=== PATIENT | male | born 1960 | race Caucasian/White ===

== ENCOUNTER 2023-07-28 06:55 | Day surgery (SDC) | payer OTHER, SELFPAY ==
[2023-07-28] VITALS (17 sets, daily range): BP systolic 97–188; BP diastolic 66–109; BMI 22.5
[2023-07-28] MEDS: NSS 500 IV (07:04)
[2023-07-28 07:07] LABS: Hematocrit 41.8 % (39.0-52.0); Hemoglobin 13.7 g/dL (13.0-18.0); Mean Corp Hgb Conc. 32.8 g/dL (33.0-37.0); Mean Corpuscular Hgb 27.8 pg (27.0-31.0); Mean Platelet Volume 9.6 fL (7.4-10.4); Platelet Count 256 10^3/uL (130-400); Red Blood Cell Count 4.92 10^6/uL (4.70-6.10); White Blood Cell Count 9.6 10^3/uL (4.8-10.8)
--- NOTE | 2023-07-28 07:11 | W.SUR.PREOP ---
Pre-Operative Surgical Note
-
I have examined this patient prior to the performance of the scheduled procedure.
The patient's condition is unchanged from the time of the current History and
Physical and the patient is able to undergo the scheduled procedure.
[2023-07-28 07:14] LABS: Glucose - Point of Care 171 mg/dl (70-99)
[2023-07-28 07:17] LABS: APTT 30.5 Sec (23.4-35.0); INR 0.94; PT 12.6 Sec (11.4-14.6)
[2023-07-28 07:27] LABS: Blood Urea Nitrogen 56 mg/dl (9-20); Calcium 8.6 mg/dl (8.4-10.2); Carbon Dioxide 27 mmol/L (22-30); Chloride 107 mmol/L (98-107); Estimated Creatinine Clearance 16 ml/min; Glucose 168 mg/dl (70-99); Potassium 5.1 mmol/L (3.5-5.1); Sodium 139 mmol/L (135-145); eGFR 11.62
--- NOTE | 2023-07-28 09:30 | W.SUR.POST ---
Surgical Immediate Post Op
Note
Pre Op Diagnosis: PAD, ESRD
Post Op Diagnosis: PAD, ESRD
Procedure Performed: LLE angiogram, left SFA stents x 3, LUE fistulagram with balloon angioplasty
Primary Surgeon: Onel
Anesthesia: local and sedation
Estimated Blood Loss: 2cc
Fluids: see anethesia flow sheet
Drains/Shunts: none
Specimens/Cultures: none
Doppler/Duplex/Angio (Y/N): Y
Complications: none
Operative Findings: +thrill
[2023-07-28 09:38] LABS: Glucose - Point of Care 135 mg/dl (70-99)
--- NOTE | 2023-07-28 15:03 | W.PN.UPDATE ---
Update Note
Progress Note Update
Called to bedside by RN Saundra Segura, reporting patient demanding to be discharged 30 minutes prior to established discharge order. When I arrived to recovery bay patient was dressed and presently in wheel chair, puncture site soft with no evidence
of hematoma, reinforced bleeding risk and when to seek urgent medical care/call EMS patient verbalized understanding and continues to request discharge. Patient brought to car safely via wheel chair.
--- NOTE | 2023-07-29 13:37 | OR.RPT ---
Operative Report
Operative Report
PROCEDURE DATE: 07/28/2023
Preoperative diagnosis: Chronic limb threatening ischemia left lower extremity with tissue loss.
Postoperative diagnosis: Same
Procedure:
1. Duplex assisted right common femoral artery cannulation.
2. Aortogram and pelvic angiogram.
3. Left lower extremity arteriogram with third order vessel catheterization of the left below the knee popliteal artery via right common femoral artery puncture.
4. Balloon angioplasty and stent placement with Plei Zilver PTX stents left SFA x 3 (nonoverlapping) with 6 mm x 40 mm, 6 mm x 40 mm, 6 mm x 120 mm stents.
5. Right femoral angiogram.
6. Left upper extremity fistulogram.
7. Balloon angioplasty of left upper extremity AV fistula outflow vein stenosis with 4 mm angioplasty balloon.
6. Supervision and interpretation.
Surgeon: Onel
Marshmallow Runner: None
Complications: None
Anesthesia: Local, sedation
Fluoroscopy:
15.6 min
37 mGy
9.18 Gy.cm2
Indications for procedure:
Patient had combined problem of left lower extremity tissue loss (history of proximal foot amputation). In addition had none maturing or poorly maturing fistula. Was brought for left lower extremity arteriogram and fistulogram to be done under the
same anesthesia setting. Risk/benefits/alternatives were also discussed. Patient understood all wish to proceed.
Description of procedure:
Patient was identified, brought to the operating room. Placed on the table in the supine position. After the adequate administration of anesthesia, the patient was prepped and draped in the standard surgical fashion. A standard preoperative
timeout was undertaken and everybody was in agreement with the plan.
The right common femoral artery was accessed with a micropuncture kit under direct duplex ultrasound guidance. A 5 Swiss sheath was then advanced over a 0.035 inch wire, and a pedersen's hook catheter was advanced into the abdominal aorta.
Aortogram and pelvic angiogram was obtained. Findings as follows:
Infrarenal aorta: Small infrarenal aortic ectasia with atherosclerotic plaque but no significant stenosis in visualized portion of distal infrarenal aorta.
Right common iliac artery: Diffuse eccentric atherosclerotic plaque possible mild stenosis near bifurcation. Right internal iliac artery not well-visualized though. Appears chronically occluded.
Right external iliac artery: Patent with some luminal irregularities but no definitive stenosis.
Left common iliac artery: Patent with eccentric plaque. No significant stenosis.
Left external iliac artery: Patent with eccentric plaque, luminal irregularity but no significant stenosis. Distal external iliac artery stent patent with no significant stenosis.
Using a floppy angled hydrophilic wire, the left common femoral artery was cannulated and the catheter was advanced. Left lower extremity arteriogram was obtained. Findings as follows:
Common femoral artery: Relatively small in stature but no significant stenosis.
Profunda femoris artery: Mild to moderate proximal stenosis but not severe.
Superficial femoral artery: Patent proximally and then about 6 to 8 cm beyond the origin heavy bulky coral reef like plaque resulting in severe stenosis. Luminal irregularities throughout beyond here. Some areas of possible stenoses with slower
flow. Distal SFA with focal string-like stenosis again.
Popliteal artery: Patent with diffuse luminal irregularities.
Anterior tibial artery: Patent proximal and mid segment but relatively poor filling seen distally. Appears to occlude at ankle.
Tibial peroneal trunk: Patent with no definitive stenosis though small.
Peroneal artery: Patent proximally but very small stature. Not great filling seen distally beyond the ankle (no collateral seen to fill distally).
Posterior tibial artery: Patent with no definitive stenosis. Appears to be the dominant runoff vessel to the foot. But on the foot itself it occludes in the proximal foot.
At this point I selectively cannulated the superficial femoral artery and then exchanged for an up and over 6 Swiss sheath. I give the patient appropriate dose of heparin. I was able to traverse the proximal stenosis with a Storq wire and then
under roadmap assisted guidance traversed the distal stenosis with a flopping on hydrophilic wire and a CXI catheter. Angiogram confirmed I was in the true lumen and the popliteal artery. I then exchanged for a Storq wire again. I then primarily
stented the proximal and distal severe stenoses in the SFA with 6 mm Zilver PTX stents post angioplastied with a 5 mm balloons. Completion angiogram demonstrated excellent result at those 2 sites. However the middle segment of the SFA now appeared
to have areas of luminal irregularities that seem to hold off of the filling. I could not tell if there was some thrombus or chronic plaque/filling defects. In order to be safe I felt that it would be best to stent this. I used a 6 mm x 120 mm
Zilver PTX stent. This was post angioplastied with a 5 mm balloon as well. Completion angiogram demonstrated now excellent result. Good flow into the runoff.
At this point I performed a right femoral angiogram that demonstrated good puncture in the right common femoral artery. The SFA appeared occluded on the right side. (Chronically). I then exchanged for a short 6 Swiss sheath and remove my wires.
Next I turned my attention to the left upper extremity which was prepped and draped in the standard surgical fashion. I then under duplex assisted guidance cannulated the outflow cephalic vein in the proximal forearm and a peripheral facing
direction using a micropuncture kit. I then advanced a 4 Swiss sheath over a 0.035 inch wire. I then performed a fistulogram that demonstrated patent outflow vein at least to the level of the mid forearm and more proximally in the forearm. I
advanced a glide catheter to try to image closer to the anastomosis. However at this point we had dysfunction of our imaging capabilities. Our system was not working properly and I could not perform subtraction images anymore. Therefore I did
fluoroscopy standard runs nonsubtracted which made this very challenging. I was however finally able to gain wire access into the radial artery distal to the anastomosis (was unable to get wire access into the radial artery proximal to the
anastomosis. There did appear to be after imaging here a significant stenosis in the immediate outflow segment of the vein. I therefore then exchanged for a 0.018 inch wire and then performed balloon angioplasty of that segment with a 4 mm
balloon. Completion angiogram now demonstrated definite improvement with now complete patent flow channel. It was still somewhat stenotic but I was hesitant to take a 5 mm balloon up as the 4 mm balloon itself was causing some spasm in the radial
artery. In addition my imaging was very limited based on the issues we are having with her imaging machine. We did try troubleshooting but were unable to achieve resolution. Therefore at this point I felt the safest thing and best thing was to
stop. The wires and catheters were withdrawn. A 4-0 Monocryl pursestring stitch was placed around the sheath entry site and this was tied down as the sheath was withdrawn. Manual pressure was also gently applied. The patient tolerated the
procedure well. Upon completion of both these procedures he had a good thrill in the AV fistula. And on the left lower extremity he had a palpable popliteal pulse with a dopplerable proximal DP signal. At this point is very satisfied. The
patient was transported to the recovery room where the right femoral sheath was withdrawn and manual pressure applied. Hemostasis was achieved there as well.
The patient tolerated procedure well.
== END 2023-07-28 15:10 | disposition home or self-care (01) ==
LOC: CATH 06:55
PROVIDERS: ATTENDING PHYSICIAN Surgery Vascular Surgery; FAMILY PHYSICIAN Internal Medicine
DX: I70.222 Atherosclerosis of native arteries of extremities with rest pain, left leg (principal); Z79.82 Long term (current) use of aspirin; Z79.02 Long term (current) use of antithrombotics/antiplatelets; Z79.4 Long term (current) use of insulin; E11.9 Type 2 diabetes mellitus without complications; Z86.73 Personal history of transient ischemic attack (TIA), and cerebral infarction without residual deficits; Z87.891 Personal history of nicotine dependence; Z95.820 Peripheral vascular angioplasty status with implants and grafts; T82.898A Other specified complication of vascular prosthetic devices, implants and grafts, initial encounter; Y83.2 Surgical operation with anastomosis, bypass or graft as the cause of abnormal reaction of the patient, or of later complication, without mention of misadventure at the time of the procedure
CPT/HCPCS: 37226; 36902; 75625; 75716; 76937; 80048; 82962; 85027; 85610; 85730; 86850; 86900; 86901; C1725; C1769; C1874; C1887; C1894; Q9967

== ENCOUNTER → 2023-08-31 13:17 | Outpatient (REF) | payer OTHER, SELFPAY | LOC: RAD 13:17 | PROVIDERS: ATTENDING PHYSICIAN Surgery Vascular Surgery; FAMILY PHYSICIAN Internal Medicine | DX: I73.9 Peripheral vascular disease, unspecified (principal) | CPT/HCPCS: 93922; 93925 ==

== ENCOUNTER → 2023-12-07 15:13 | Outpatient (REF) | payer OTHER, SELFPAY | LOC: RAD 15:13 | PROVIDERS: ATTENDING PHYSICIAN Registered Nurse; FAMILY PHYSICIAN Internal Medicine | DX: I73.9 Peripheral vascular disease, unspecified (principal) | CPT/HCPCS: 93922; 93925 ==

== ENCOUNTER → 2024-01-02 14:05 | Outpatient (REF) | payer OTHER, SELFPAY | LOC: RAD 14:05 | PROVIDERS: ATTENDING PHYSICIAN Surgery Vascular Surgery; FAMILY PHYSICIAN Internal Medicine | DX: I77.0 Arteriovenous fistula, acquired (principal) | CPT/HCPCS: 93990 ==